=== PATIENT | male | born 1950 | race Caucasian/White ===

== ENCOUNTER 2022-04-10 10:26 | Emergency (ER) | payer MEDICARE, SELFPAY ==
[2022-04-10 10:32] VITALS: BP 134/74; PULSE 76; RESP 14; TEMP 37.1; O2SAT 99
--- NOTE | 2022-04-10 10:38 | ED.URI ---
HPI - URI/Sore Throat General Chief Complaint: Upper Respiratory Infection Stated Complaint: headache cough Time Seen by Provider: 04/10/22 10:38 Source: patient and RN notes reviewed History of Present Illness HPI Narrative: Patient is a 71-year-old female who presents to the Urgent Care with complaints of headache and cough for the last 12 days. Patient also reports of fatigue and postnasal drainage. Patient states symptoms seem to have gotten worse in the last few days. He has been taking all [id number] cold medication without much relief. Patient has had a deviated septum and sleep apnea surgery. Denies any fevers, nausea or vomiting. Denies of shortness of breath. No other acute complaints. No acute distress noted. Patient aware of the plan of care. Some parts of this dictation were generated by voice recognition software and may contain typographical and/or grammatical inaccuracies. Related Data Home Medications Medication Instructions Recorded Confirmed meloxicam 7.5 mg tablet 7.5 mg PO BID 04/10/22 04/10/22 omeprazole 20 mg capsule,delayed 20 mg PO DAILY 04/10/22 04/10/22 release quinapril 40 mg tablet 20 mg PO DAILY 04/10/22 04/10/22 simvastatin 20 mg tablet 20 mg PO DAILY 04/10/22 04/10/22 tamsulosin 0.4 mg capsule 0.4 mg PO DAILY 04/10/22 04/10/22 Allergies Allergy/AdvReac Type Severity Reaction Status Date / Time LODINE Allergy Unknown RASH Uncoded 04/10/22 10:52 Review of Systems Review of Systems: CONSTITUTIONAL: Denies fever, chills, or sweats. reports fatigue EYES: Denies visual changes, redness, or discharge. ENT: reports of head congestion and postnasal drainage CARDIOVASCULAR: Denies chest pain, palpitations, or edema. RESPIRATORY: reports a cough without dyspnea GASTROINTESTINAL: Denies abdominal pain, nausea, vomiting, or diarrhea. GENITOURINARY: Denies dysuria or hematuria. SKIN: Denies rash or itching. MUSCULOSKELETAL: Denies back pain, joint pain . Reports body aches NEUROLOGIC: reports of headache All other systems reviewed are negative, except as documented in HPI. PMFSH Comments At the time of my signature, I reviewed and agree with the nursing past medical, surgical, social, and family history. There is no relevant family history pertinent to the patient complaint. Exam Narrative: GENERAL: This is a well-nourished, well-developed patient. appears fatigued HEAD: normocephalic, atraumatic. EYES: PERRL. Sclera clear/white. Vision is grossly intact. EARS: External ears normal, auditory canals clear and without drainage, TMs normal without perforation. Hearing grossly intact. NOSE: External nose normal with no obvious nasal discharge . Moderate bilateral erythema nares with clear yellow rhinorrhea THROAT: Mucous membranes moist, uvula absent. Moderate postnasal drainage. NECK: Neck supple CARDIOVASCULAR: Regular rate and rhythm without murmurs, gallops, or rubs. RESPIRATORY: Clear to auscultation. Breath sounds equal bilaterally. No wheezes, rales, or rhonchi. SKIN: warm, intact with no suspicious lesions or rash, good texture and turgor. NEURO: awake, alert, and oriented to person, place and time. There were no obvious focal neurologic abnormalities. EXTREMITIES: No clubbing, cyanosis, or edema. Course Course Level of Care: Express Care Visit Vital Signs Vital signs: Vital Signs Temperature 98.8 F 04/10/22 10:32 Pulse Rate 76 04/10/22 10:32 Respiratory Rate 14 04/10/22 10:32 Blood Pressure 134/74 04/10/22 10:32 Pulse Oximetry 99 04/10/22 10:32 Oxygen Delivery Room Air 04/10/22 10:32 Temperature 98.8 F 04/10/22 10:32 Pulse Rate 76 04/10/22 10:32 Respiratory Rate 14 04/10/22 10:32 Blood Pressure 134/74 04/10/22 10:32 Pulse Oximetry 99 04/10/22 10:32 Oxygen Delivery Room Air 04/10/22 10:32 reviewed MDM - URI/Sore Throat MDM Narrative Medical decision making narrative: advised patient to complete the o
== END 2022-04-10 11:10 | disposition home or self-care (01) ==
PROVIDERS: Emergency Provider Nurse Practitioner Family; PCP Internal Medicine
DX: J32.9 Chronic sinusitis, unspecified (principal); E78.00 Pure hypercholesterolemia, unspecified; I10 Essential (primary) hypertension; K21.9 Gastro-esophageal reflux disease without esophagitis; N40.0 Benign prostatic hyperplasia without lower urinary tract symptoms; G62.9 Polyneuropathy, unspecified; G47.30 Sleep apnea, unspecified
CPT/HCPCS: 99213; G0463

== ENCOUNTER 2023-02-04 13:26 | Emergency (ER) | payer MEDICARE, SELFPAY ==
[2023-02-04 13:32] VITALS: BP 123/69; PULSE 70; RESP 20; TEMP 36.3; O2SAT 100
--- NOTE | 2023-02-04 14:26 | ED.EYEPROB ---
HPI - Eye Problem General Chief complaint: Eye Problems Stated complaint: right eye Time Seen by Provider: 02/04/23 14:10 Source: patient, family and RN notes reviewed Mode of arrival: ambulatory Limitations: no limitations History of Present Illness HPI Narrative: 72 year old male accompanied by spouse presents to express care with complaints of right eye inner lower eye lid a lesion that has been there for 2 weeks. Patient reports that his eye has felt irritated but has not had any fevers, acute pain or any changes in his vision. Patient has not taken any OTC medications. Visual acuity right eye 20/25, Left eye 20/30 with no corrective lenses. chief complaint: other (stye) Onset (ago): week(s) (2) Eye Symptoms: other (fluid filled lesion right lower inner eyelid) Severity scale (1-10): 1 Treatments Prior to Arrival: none Related Data Home Medications Medication Instructions Recorded Confirmed omeprazole 20 mg capsule,delayed 20 mg PO DAILY 04/10/22 04/10/22 release simvastatin 20 mg tablet 20 mg PO DAILY 04/10/22 04/10/22 tamsulosin 0.4 mg capsule 0.4 mg PO DAILY 04/10/22 04/10/22 lisinopril 40 mg tablet mg 02/04/23 Allergies Allergy/AdvReac Type Severity Reaction Status Date / Time LODINE Allergy Unknown RASH Uncoded 04/10/22 10:52 Review of Systems Review of Systems: CONSTITUTIONAL: Denies fever, chills, or sweats. EYES: Denies visual changes. reports lesion inside right lower eye lid. ENT: Denies rhinorrhea, congestion, sore throat, or otalgia. CARDIOVASCULAR: Denies chest pain, palpitations, or edema. RESPIRATORY: Denies cough or dyspnea. SKIN: Denies rash or itching. NEUROLOGIC: Denies headache All systems reviewed & are unremarkable except as noted in HPI and below [facility] Past Medical History Medical History (Updated 02/06/23 @ 08:36 by Maria Alejandra Muhammad NP) BPH (benign prostatic hyperplasia) Elevated cholesterol GERD (gastroesophageal reflux disease) Hypertension SO (obstructive sleep apnea) FES and UPP Surgical History Surgical History (Updated 02/06/23 @ 08:32 by Maria Alejandra Muhammad NP) H/O elbow surgery H/O lumbosacral spine surgery Hx of cervical spine surgery Social History Social History (Updated 02/06/23 @ 08:30 by Maria Alejandra Muhammad NP) Smoking status: Never smoker Alcohol intake: current Alcohol use details: social Substance use type: does not use Living arrangements: with family Gender identity (if verbalized by the patient): Male Comments At time of signature, agree with nursing past medical, surgical, social and family history. There is no relevant family history pertinent to the presenting complaint Exam Narrative: GENERAL: Well-appearing, well-nourished, and in no acute distress. HEAD: Normocephalic, atraumatic. EYES: PERRLA and EOMI. Upper eyelids unremarkable. and left lower Lesion fluid filled noted to inner right lower eyelid No periorbital cellulitis noted. Sclera and conjunctiva clear ENT: Nares clear, no rhinorrhea or epistaxis. Mucous membranes moist. NECK: Supple.no lymphadenopathy CHEST: Clear to auscultation. No respiratory distress.SAO2 100% on room air HEART: Regular rate and rhythm. No murmur heard. Normal peripheral pulses. SKIN: Warm, dry, no rash. NEURO: No focal deficits. Alert and oriented x3. Course Course Emergency Course: Patient is aware of diagnosis, understands and agrees to treatment plan. Anticipatory guidance given. Patient agrees to follow-up as directed and is aware of reasons to seek care at the emergency department. Portions of this record may have been created with voice recognition software Level of Care: Express Care Visit Vital Signs Vital signs: Vital Signs Temperature 36.3 C L 02/04/23 13:32 Pulse Rate 70 02/04/23 13:32 Respiratory Rate 20 02/04/23 13:32 Blood Pressure 123/69 02/04/23 13:32 Pulse Oximetry 100 02/04/23 13:32 Oxygen Delivery Room Air 02/04/23 13:32 Tem
== END 2023-02-04 14:36 | disposition home or self-care (01) ==
PROVIDERS: Emergency Provider Registered Nurse; PCP Internal Medicine
DX: H00.022 Hordeolum internum right lower eyelid (principal); N40.0 Benign prostatic hyperplasia without lower urinary tract symptoms; E78.00 Pure hypercholesterolemia, unspecified; K21.9 Gastro-esophageal reflux disease without esophagitis; I10 Essential (primary) hypertension
CPT/HCPCS: 99213; G0463

== ENCOUNTER 2023-11-28 11:24 | Emergency (ER) | payer MEDICARE, SELFPAY ==
[2023-11-28 11:32] VITALS: BP 82/53; PULSE 110; RESP 16; TEMP 36.5; O2SAT 98
--- NOTE | 2023-11-28 11:48 | ED.EYEPROB ---
HPI - Eye Problem General Chief complaint: Eye Problems Stated complaint: Right Eye Problem Time Seen by Provider: 11/28/23 11:42 Source: patient and RN notes reviewed Mode of arrival: ambulatory Limitations: no limitations History of Present Illness HPI Narrative: 73-year-old male presents with concern for feeling of foreign body/discomfort to the right corner of his eye. He denies vision changes. Reports he woke up with symptoms. Reports he was cutting metal yesterday but he was wearing full gargles and did not have any pain during that time. He denies any intervention. MD chief complaint: eye pain Related Data Home Medications Medication Instructions Recorded Confirmed omeprazole 20 mg capsule,delayed 20 mg PO DAILY 04/10/22 11/28/23 release simvastatin 20 mg tablet 20 mg PO DAILY 04/10/22 11/28/23 tamsulosin 0.4 mg capsule 0.4 mg PO DAILY 04/10/22 11/28/23 lisinopril 40 mg tablet 40 mg PO DAILY 02/04/23 11/28/23 Allergies Allergy/AdvReac Type Severity Reaction Status Date / Time LODINE Allergy Unknown RASH Uncoded 11/28/23 11:40 Review of Systems Review of Systems: CONSTITUTIONAL: Denies malaise, chills, sweats, or fever. EYES: Denies visual changes. Reports right eye discomfort, redness ENT: Denies rhinorrhea, congestion, sinus pain, otalgia or sore throat. SKIN: Denies rash or itching. NEUROLOGIC: Denies numbness, weakness, or headache. PSYCHIATRIC: Denies anxiety or depression. All systems reviewed & are unremarkable except as noted in HPI and below PMFSH Past Medical History Medical History (Updated 11/28/23 @ 12:02 by Rekha Riley NP) BPH (benign prostatic hyperplasia) Elevated cholesterol GERD (gastroesophageal reflux disease) Hypertension SO (obstructive sleep apnea) FES and UPP Surgical History Surgical History (Updated 02/06/23 @ 08:32 by Maria Alejandra Muhammad NP) H/O elbow surgery H/O lumbosacral spine surgery Hx of cervical spine surgery Social History Social History (Updated 02/06/23 @ 08:30 by Maria Alejandra Muhammad NP) Smoking status: Never smoker Alcohol intake: current Alcohol use details: social Substance use type: does not use Living arrangements: with family Gender identity (if verbalized by the patient): Male Comments At time of signature, agree with nursing past medical, surgical, social and family history. There is no relevant family history pertinent to the presenting complaint Exam Narrative: GENERAL: Well-appearing, well-nourished, and in no acute distress. HEAD: Normocephalic, atraumatic. EYES: PERRLA, sclera clear, and EOMI. No nystagmus. Right conjunctivae clear, lateral sclera mildly injected, corneal abrasion noted upon once lamp exam, see note. Upper and lower eyelid unremarkable, no periorbital edema noted ENT: Nares clear, turbinates pink, no rhinorrhea or epistaxis. Mucous membranes moist. TM pearly holloway with sharp light reflex bilaterally; no tragal tenderness. NECK: Supple. CHEST: No respiratory distress. Speaks in full sentences. HEART: Regular rate and rhythm. SKIN: Warm, dry, no visible rash. NEURO: Alert and oriented x3. PSYCH: Normal mood and affect Course Course Emergency Course: Patient is aware of diagnosis, understands and agrees to treatment plan. Anticipatory guidance given. Patient agrees to follow-up as directed and is aware of reasons to seek care at the emergency department. Portions of this record may have been created with voice recognition software Level of Care: Express Care Visit Vital Signs Vital signs: Vital Signs Temperature 97.7 F 11/28/23 11:32 Pulse Rate 110 H 11/28/23 11:32 Respiratory Rate 16 11/28/23 11:32 Blood Pressure 82/53 L 11/28/23 11:32 Pulse Oximetry 98 11/28/23 11:32 Oxygen Delivery Room Air 11/28/23 11:32 Temperature 97.7 F 11/28/23 11:32 Pulse Rate 110 H 11/28/23 11:32 Respiratory Rate 16 11/28/23 11:32 Blood Pressure 82/53 L 11/28/23 11:
[2023-11-28] MEDS: TETRACAINE HCL 0.5% OPHTH SOLN 4 ML BTL RIGHT EYE (11:52)
[2023-11-28] MEDS: FLUORESCEIN SOD 1 MG/STRIP RIGHT EYE (11:52)
[2023-11-28] MEDS: DACRIOSE EYE IRRIGATION 118 ML BOTTLE RIGHT EYE (11:53)
== END 2023-11-28 12:10 | disposition home or self-care (01) ==
PROVIDERS: Emergency Provider Nurse Practitioner
DX: S05.01XA Injury of conjunctiva and corneal abrasion without foreign body, right eye, initial encounter (principal); X58.XXXA Exposure to other specified factors, initial encounter; N40.0 Benign prostatic hyperplasia without lower urinary tract symptoms; E78.00 Pure hypercholesterolemia, unspecified; K21.9 Gastro-esophageal reflux disease without esophagitis; I10 Essential (primary) hypertension
CPT/HCPCS: 99213; A9270; G0463